=== PATIENT | female | born 1960 | race Caucasian/White ===

== ENCOUNTER 2019-08-30 12:58 | Emergency (ER) | payer OTHER ==
[2019-08-30 13:11] VITALS: BP 135/71; PULSE 89
--- NOTE | 2019-08-30 13:12 | EDM.PDOC ---
ED HPI GENERAL MEDICAL PROBLEM - General Chief Complaint: Lower Extremity Injury/Pain Stated Complaint: RIGHT ANKLE INJURY Time Seen by Provider: 08/30/19 13:07 Source of Information: Reports: Patient History Limitations: Reports: No Limitations - History of Present Illness INITIAL COMMENTS - FREE TEXT/NARRATIVE: This is unfortunate 59-year-old female presents emergency Department today with complaint right ankle pain. 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 Patient' s had pain in that ankle ever since. Patient has a mild abrasion to the medial malleolus and mild swelling to lateral malleolus minimal swelling at this time no ecchymosis distal neurovascular is intact Right Ankle Pain Score (Numeric/FACES): 5 - Related Data Allergies Allergy/AdvReac Type Severity Reaction Status Date / Time Penicillins Allergy Rash Verified 08/30/19 13:10 Home Meds: Home Meds FLUoxetine HCl [Fluoxetine HCl] 20 mg PO DAILY 09/19/15 [History] amLODIPine Besylate [Amlodipine Besylate] 5 mg PO DAILY 09/19/15 [History] traMADol [Ultram] 50 mg PO Q6H PRN 09/19/15 [History] Past Medical History HEENT History: Reports: Impaired Vision, Other (See Below) Other HEENT History: glasses, top denture Cardiovascular History: Reports: Hypertension Psychiatric History: Reports: Depression - Past Surgical History Female Surgical History: Reports: Hysterectomy, Tubal Ligation Musculoskeletal Surgical History: Reports: Other (See Below) Review of Systems - Review of Systems Review Of Systems: See Below Constitutional: Denies: Chills, Fever Musculoskeletal: Reports: Joint Pain, Joint Swelling ED EXAM, GENERAL - Physical Exam Exam: See Below Exam Limited By: No Limitations General Appearance: Alert, WD/WN, Mild Distress Head: Atraumatic, Normocephalic Neck: Normal Inspection, Supple, Non-Tender, Full Range of Motion Respiratory/Chest: No Respiratory Distress, Lungs Clear, Normal Breath Sounds, No Accessory Muscle Use, Chest Non-Tender Cardiovascular: Normal Peripheral Pulses, Regular Rate, Rhythm, No Edema, No Gallop, No JVD, No Murmur, No Rub GI/Abdominal: Normal Bowel Sounds, Soft, Non-Tender, No Organomegaly, No Distention, No Abnormal Bruit, No Mass Extremities: Normal Inspection, Joint Swelling, Other (Small abrasion medial malleolus mild swelling to lateral malleolus no ecchymosis distal neurovascular is intact) Neurological: Alert Skin Exam: Warm, Dry, No Rash Course - Vital Signs Last Recorded V/S: Last Vital Signs Temp 97.8 F 08/30/19 13:07 Pulse 89 08/30/19 13:07 Resp 14 08/30/19 13:07 BP 135/71 08/30/19 13:07 Pulse Ox 95 08/30/19 13:07 - Orders/Labs/Meds Orders: Active Orders 24 hr Category Date Time Status Ankle Min 3V Rt [CR] Stat Exams 08/30/19 13:10 Taken - Re-Assessments/Exams Free Text/Narrative Re-Assessment/Exam: 08/30/19 13:34 Right ankle interpreted by me NAD Departure - Departure Time of Disposition: 13:34 Disposition: Home, Self-Care 01 Condition: Good Clinical Impression: Contusion of right ankle Qualifiers: Encounter type: initial encounter Qualified Code(s): S90.01XA - Contusion of right ankle, initial encounter - Discharge Information Referrals: Dasiy Fernandez PA-C [Primary Care Provider] - Forms: ED Department Discharge, ED Return to Work/School Form Additional Instructions: Home, rest, ice, elevate, return as needed for worsening condition Sepsis Event Note - Evaluation Sepsis Screening Result: No Definite Risk - Focused Exam Vital Signs: Vital Signs Temp Pulse Resp BP Pulse Ox 08/30/19 13:07 97.8 F 89 14 135/71 95 Date Exam was Performed: 08/30/19 Time Exam was Performed: 13:34 - My Orders Last 24 Hours: My Active Orders 08/30/19 13:10 Ankle Min 3V Rt [CR] Stat - Assessment/Plan Last 24 Hours: My Active Orders 08/30/19 13:10 Ankle Min 3V Rt [CR] Stat
--- NOTE | 2019-08-31 09:18 | CR ---
Right ankle: Four views of the right ankle were obtained. Comparison: No prior right ankle exam. Large plantar spur is seen. Ankle mortise is symmetric. No acute fracture, dislocation or other bony abnormality is identified. Impression: 1. Large plantar spur. 2. Right ankle study is otherwise unremarkable. Diagnostic code #2 This report was dictated in [place] Standard Time
== END 2019-08-30 13:50 | disposition home or self-care (01) ==
LOC: JD.ED 12:58
DX: S90.01XA Contusion of right ankle, initial encounter (principal); I10 Essential (primary) hypertension; F32.9 Major depressive disorder, single episode, unspecified; Z88.0 Allergy status to penicillin; Z79.899 Other long term (current) drug therapy; W22.8XXA Striking against or struck by other objects, initial encounter; Y92.129 Unspecified place in nursing home as the place of occurrence of the external cause; Y99.0 Civilian activity done for income or pay
CPT/HCPCS: 73610-26-RT; 73610-RT; 99282; 99283-25

== ENCOUNTER 2021-10-10 21:20 | Emergency (ER) | payer OTHER ==
[2021-10-10 21:33] VITALS: BP 160/79; PULSE 87
[2021-10-10] MEDS ORDERED: Acetaminophen 325 MG Tab PO ONE (21:58)
== END 2021-10-10 23:43 | disposition home or self-care (01) ==
LOC: JD.ED 21:20
DX: S00.03XA Contusion of scalp, initial encounter (principal); S20.211A Contusion of right front wall of thorax, initial encounter; I10 Essential (primary) hypertension; Z88.0 Allergy status to penicillin; Z87.891 Personal history of nicotine dependence; W22.09XA Striking against other stationary object, initial encounter
CPT/HCPCS: 70450; 71101; 99284; A9270

== ENCOUNTER 2021-10-21 23:10 | Emergency (ER) | payer OTHER ==
[2021-10-22] MEDS ORDERED: Albuterol 0.083% 2.5 MG/3 ML Neb Soln NEB ONE (00:05)
[2021-10-22 01:02] LABS: CORONAVIRUS COVID-19 NAA NEGATIVE (NEGATIVE)
[2021-10-22] MEDS ORDERED: Iopamidol 755 Mg/ML 100 ML Bottle IVPUSH ONE (01:33)
[2021-10-22] MEDS ORDERED: Sodium Chloride 0.9% 10 ML SDV FLUSH ONE (01:33)
[2021-10-22] MEDS ORDERED: Sodium Chloride 0.9% 100 ML IV SCH (01:45)
[2021-10-22 04:33] VITALS: BP 141/76; PULSE 88
== END 2021-10-22 04:26 | disposition home or self-care (01) ==
LOC: JD.ED 23:10
DX: J69.0 Pneumonitis due to inhalation of food and vomit (principal); I10 Essential (primary) hypertension; I44.4 Left anterior fascicular block; Z88.0 Allergy status to penicillin; Z79.899 Other long term (current) drug therapy; Z20.822 Contact with and (suspected) exposure to COVID-19
CPT/HCPCS: 0241U; 36415; 71045; 71275; 80053; 85025; 85379; 85610; 93005; 94640; 99284; Q9967; 93010; 99285

== ENCOUNTER 2021-11-21 22:43 | Emergency (ER) | payer OTHER ==
[2021-11-21 23:48] LABS: CORONAVIRUS COVID-19 NAA POSITIVE (NEGATIVE)
[2021-11-22] MEDS ORDERED: Acetaminophen 325 MG Tab ONE (02:13)
[2021-11-22 07:30] VITALS: BP 171/104; PULSE 112
== END 2021-11-22 04:00 | disposition home or self-care (01) ==
LOC: JD.ED 22:43
DX: U07.1 COVID-19 (principal); M17.11 Unilateral primary osteoarthritis, right knee; I10 Essential (primary) hypertension; E66.9 Obesity, unspecified; Z68.35 Body mass index [BMI] 35.0-35.9, adult; Z88.0 Allergy status to penicillin; Z86.16 Personal history of COVID-19; Z72.0 Tobacco use
CPT/HCPCS: 0240U; 36415; 71045; 73562; 80053; 83605; 83735; 84484; 85025; 85379; 86140; 87040; 99284; A9270

== ENCOUNTER 2023-04-20 10:37 | Inpatient (IN) | payer MEDICARE, OTHER ==
[2023-04-20] MEDS ORDERED: Dextrose 5%-0.9% NaCl 1,000 ML IV SCH (11:30)
[2023-04-20 11:52] LABS: BASOPHILS ABSOLUTE AUTO 0.04 K/mm3 (0.01-0.08); BASOPHILS PERCENT AUTO 0.4 % (0.1-1.2); EOSINOPHILS PERCENT AUTO 0 (0.7-5.8); HEMATOCRIT 38.2 % (34.1-44.9); HEMOGLOBIN 12.3 gm/dl (11.2-15.7); IMMATURE GRAN ABSOLUTE AUTO 0.03 K/mm3 (0.00-0.10); IMMATURE GRAN PERCENT AUTO 0.3 % (<=1.0); LYMPHOCYTES PERCENT AUTO 13.3 % (19.3-51.7); MEAN CORPUSCULAR HEMOGLOBIN 28.9 pg (25.6-32.2); MEAN CORPUSCULAR HGB CONC 32.2 g/dl (32.2-35.5); MEAN CORPUSCULAR VOLUME 89.7 fl (79.4-94.8); MEAN PLATELET VOLUME 9.9 fl (9.4-12.3); MONOCYTES ABSOLUTE AUTO 1.12 K/mm3 (0.24-0.36); MONOCYTES PERCENT AUTO 9.9 % (4.7-12.5); NEUTROPHILS ABSOLUTE AUTO 8.62 K/mm3 (1.56-6.13); NEUTROPHILS PERCENT AUTO 76.1 % (34.0-71.1); PLATELET COUNT,PLT 305 K/mm3 (182-369); RED BLOOD CELL COUNT 4.26 M/mm3 (3.98-5.22); WHITE BLOOD CELL COUNT,WBC 11.31 K/mm3 (3.98-10.04)
[2023-04-20 12:14] LABS: INR 1.06; PROTHROMBIN TIME 11.3 SECONDS (9.7-12.0)
[2023-04-20 12:15] LABS: PTT,PARTIAL THROMBOPLSTIN TIME 26.7 SECONDS (21.7-31.4)
[2023-04-20 12:17] LABS: BASE EXCESS ARTERIAL 1.5 (-2-2.0); BICARBONATE,ARTERIAL 27.5 meq/L (22.0-26.0); O2 SATURATION ARTERIAL 93.8 % (96.0-97.0); PCO2 ARTERIAL 52.5 mmHg (35.0-45.0)
[2023-04-20 12:23] LABS: A/G RATIO 0.7 (1-2); ALANINE AMINOTRANSFERASE,ALT 18 U/L (14-59); ALBUMIN 2.9 g/dl (3.4-5.0); ALKALINE PHOSPHATASE 68 U/L (46-116); ANION GAP 11.7 (5-15); ASPARTATE AMNIOTRANSFERASE,AST 24 U/L (15-37); BILIRUBIN TOTAL 0.4 mg/dL (0.2-1.0); BLOOD UREA NITROGEN,BUN 16 mg/dL (7-18); CALCIUM 8.7 mg/dL (8.5-10.1); CARBON DIOXIDE,CO2 30 mEq/L (21-32); CHLORIDE,CL 102 mEq/L (98-107); ESTIMATED GFR 63 mL/min (>60); GLUCOSE RANDOM 120 mg/dL (70-99); LACTATE DEHYDROGENASE,LDH 197 U/L (81-234); POTASSIUM,K 4.7 mEq/L (3.5-5.1); PROTEIN TOTAL,TP 7.1 g/dl (6.4-8.2); SODIUM,NA 139 mEq/L (136-145)
[2023-04-20 12:24] LABS: TROPONIN I HIGH SENSITIVITY 154 pg/mL (<=51)
[2023-04-20 12:25] LABS: C-REACTIVE PROTEIN 15.4 mg/dL (<1.0)
[2023-04-20] MEDS ORDERED: Furosemide 40 MG/4 ML VIAL IVPUSH ONE (12:29)
[2023-04-20 12:31] LABS: D-DIMER QUANTITATIVE 1.13 mg/L (0.19-0.50)
[2023-04-20 13:07] LABS: SLIDE REVIEW ABNORMAL SMEAR
[2023-04-20] MEDS ORDERED: Iopamidol 755 Mg/ML 100 ML Bottle IVPUSH ONE (13:18)
[2023-04-20] MEDS ORDERED: Sodium Chloride 0.9% 100 ML IV SCH (13:30)
[2023-04-20] MEDS ORDERED: Polyethylene Glycol 3350 Powder 17 GM Packet PO ONE (13:54)
[2023-04-20] MEDS ORDERED: Sodium Chloride 0.9% 10 ML Syringe FLUSH PRN (14:11)
[2023-04-20] MEDS ORDERED: Docusate Sodium 100 MG Cap PO PRN (14:11)
[2023-04-20] MEDS ORDERED: Ondansetron 4 MG/2 ML SDV IV PRN (14:11)
[2023-04-20] MEDS ORDERED: Albuterol/Ipratropium 3.0-0.5 MG/3 ML Neb Soln NEB PRN (14:11)
[2023-04-20] MEDS ORDERED: Ondansetron 4 MG Tab.DIS PO PRN (14:11)
[2023-04-20] MEDS: Heparin Sodium 5,000 Units/ML Vial SUBCUT SCH ×2 (15:17→21:57)
[2023-04-20] MEDS ORDERED: Furosemide 20 MG/2 ML VIAL IVPUSH SCH (21:00)
[2023-04-20] MEDS: Acetaminophen 325 MG Tab PO PRN (21:01)
[2023-04-21 05:17] LABS: BASOPHILS ABSOLUTE AUTO 0.05 K/mm3 (0.01-0.08); BASOPHILS PERCENT AUTO 0.5 % (0.1-1.2); EOSINOPHILS ABSOLUTE AUTO 0.21 K/mm3 (0.04-0.36); EOSINOPHILS PERCENT AUTO 2.3 (0.7-5.8); HEMATOCRIT 34.7 % (34.1-44.9); IMMATURE GRAN ABSOLUTE AUTO 0.04 K/mm3 (0.00-0.10); IMMATURE GRAN PERCENT AUTO 0.4 % (<=1.0); LYMPHOCYTES ABSOLUTE AUTO 2.42 K/mm3 (1.18-3.74); LYMPHOCYTES PERCENT AUTO 26.6 % (19.3-51.7); MEAN CORPUSCULAR HEMOGLOBIN 28.4 pg (25.6-32.2); MEAN CORPUSCULAR HGB CONC 31.7 g/dl (32.2-35.5); MEAN CORPUSCULAR VOLUME 89.4 fl (79.4-94.8); MONOCYTES ABSOLUTE AUTO 1.32 K/mm3 (0.24-0.36); MONOCYTES PERCENT AUTO 14.5 % (4.7-12.5); NEUTROPHILS ABSOLUTE AUTO 5.07 K/mm3 (1.56-6.13); NEUTROPHILS PERCENT AUTO 55.7 % (34.0-71.1); PLATELET COUNT,PLT 285 K/mm3 (182-369); RED BLOOD CELL COUNT 3.88 M/mm3 (3.98-5.22); WHITE BLOOD CELL COUNT,WBC 9.11 K/mm3 (3.98-10.04)
[2023-04-21 05:52] LABS: ANION GAP 8.6 (5-15); BUN/CREATININE RATIO 15.6 (14-18); CALCIUM 8.4 mg/dL (8.5-10.1); CREATININE 0.9 mg/dL (0.55-1.02); EST CRCL DRUG DOSING (CG) 51.55 mL/min; POTASSIUM,K 3.6 mEq/L (3.5-5.1)
[2023-04-21 06:09] LABS: SLIDE REVIEW ABNORMAL SMEAR
[2023-04-21] MEDS: Furosemide 20 MG/2 ML VIAL IVPUSH SCH ×2 (06:48→13:47)
[2023-04-21] MEDS: Heparin Sodium 5,000 Units/ML Vial SUBCUT SCH ×4 (06:48→21:32)
[2023-04-21] MEDS: Acetaminophen 325 MG Tab PO PRN ×2 (07:30→18:36)
[2023-04-21] MEDS: traMADol 50 MG Tab PO PRN ×2 (07:31→18:37)
[2023-04-21] MEDS: amLODIPine 5 MG Tab PO SCH (08:37)
[2023-04-21] MEDS ORDERED: PARoxetine 20 MG Tab PO SCH (09:00)
[2023-04-21] MEDS: Trospium 20 MG Tab PO SCH ×2 (09:19→16:37)
[2023-04-22 05:55] LABS: ANION GAP 8.4 (5-15); BUN/CREATININE RATIO 16.7 (14-18); CALCIUM 8.5 mg/dL (8.5-10.1); CREATININE 0.9 mg/dL (0.55-1.02); EST CRCL DRUG DOSING (CG) 51.55 mL/min; POTASSIUM,K 3.4 mEq/L (3.5-5.1)
[2023-04-22] MEDS: Furosemide 20 MG/2 ML VIAL IVPUSH SCH (06:13)
[2023-04-22] MEDS: Trospium 20 MG Tab PO SCH (06:14)
[2023-04-22] MEDS: Heparin Sodium 5,000 Units/ML Vial SUBCUT SCH (06:14)
[2023-04-22] MEDS: Acetaminophen 325 MG Tab PO PRN (06:15)
[2023-04-22] MEDS: amLODIPine 5 MG Tab PO SCH (08:38)
[2023-04-22 12:09] VITALS: BP 126/71; PULSE 93
== END 2023-04-22 13:08 | disposition home or self-care (01) | DRG 189 ==
LOC: JD.ED 10:37 → JD.MS 14:11
PROVIDERS: ADMIT Hospitalist; ATTEND Hospitalist
PROC: 4A033R1 Measurement of Arterial Saturation, Peripheral, Percutaneous Approach (ICD-10-PCS; principal; 2023-04-20)
DX: J96.01 Acute respiratory failure with hypoxia (principal); I21.A1 Myocardial infarction type 2; J81.1 Chronic pulmonary edema; M96.840 Postprocedural hematoma of a musculoskeletal structure following a musculoskeletal system procedure; J96.02 Acute respiratory failure with hypercapnia; F32.A Depression, unspecified; I11.0 Hypertensive heart disease with heart failure; I50.9 Heart failure, unspecified; M19.90 Unspecified osteoarthritis, unspecified site; Z96.651 Presence of right artificial knee joint; Z99.81 Dependence on supplemental oxygen; Z88.0 Allergy status to penicillin; E66.9 Obesity, unspecified; Z87.01 Personal history of pneumonia (recurrent); Z79.899 Other long term (current) drug therapy; Z90.710 Acquired absence of both cervix and uterus; Z98.51 Tubal ligation status; Z87.891 Personal history of nicotine dependence; Z98.890 Other specified postprocedural states; Z86.16 Personal history of COVID-19; Z20.822 Contact with and (suspected) exposure to COVID-19; Z68.37 Body mass index [BMI] 37.0-37.9, adult
CPT/HCPCS: 36415; 36600; 71045; 71045-26; 71275; 71275-26; 80048; 80053; 80307; 82803; 83605; 83615; 83880; 84443; 84484; 85025; 85379; 85610; 85730; 86140; 87040; 87804; 87807; 93005; 93010; 93306; 94640; 94760; 94761; 96361; 96374; 97110-GP; 97161-GP; 97165-GO; 97530-GO; 99285; 99285-25; A9270-GY; J1644; J1940; J3490; J7042; J7620-GY; Q9967; U0002